=== PATIENT | male | born 1955 | race Caucasian/White ===

== ENCOUNTER 2017-08-06 12:26 | Observation (INO) | payer MEDICAID ==
[2017-08-06] MEDS ORDERED: NITROGLYCERIN 2% PASTE TOP STA ×2 (13:13→16:32)
[2017-08-06] MEDS ORDERED: ASPIRIN CHEW 81 MG TABLET PO STA (13:13)
--- NOTE | 2017-08-06 13:16 | ED Physician Documentation ---
PD HPI CHEST PAIN - Stated complaint Stated Complaint: SOA/CHEST PX/DIZZY - Chief complaint Chief Complaint: Cardiac - History obtained from History obtained from: Patient - History of Present Illness Timing - onset: Other (62-year-old gentleman with history of coronary disease, single stent in place. Medically noncompliant, on no medications now because he lacks the ability to get transport to a MI facility. For the last 2 weeks he has been consistently short of breath, present at rest and worse with exertion. He is quite dizzy and he has had on and off chest pain for the last 2 weeks that sometimes is quite mild and sometimes feels like he is getting hit in the chest with a sledgehammer, it is on the left side over the breast and radiates up to the shoulder and arm. There is no significant radiation to the back. He feels cold but denies pedal edema or recent travel.) Review of Systems Ten Systems: 10 systems reviewed and negative Constitutional: reports: Reviewed and negative Throat: reports: Reviewed and negative Cardiac: reports: Chest pain / pressure. denies: Palpitations, Pedal edema, Calf pain Respiratory: reports: Dyspnea, Cough GI: denies: Abdominal Pain PD PAST MEDICAL HISTORY - Past Medical History Cardiovascular: Hypertension, High cholesterol, Coronary artery disease, [place] Respiratory: Shortness of breath Neuro: CVA Endocrine/Autoimmune: None GI: None : None HEENT: Other Psych: Depression Musculoskeletal: Hemiplegia Derm: None - Past Surgical History Past Surgical History: Yes Ortho: Other Cardiovascular: Coronary stent, Cardiac catheterization - Present Medications Home Medications: Ambulatory Orders Medication Instructions Recorded Confirmed No Known Home Medications [No 08/06/17 08/06/17 Known Home Medications] - Allergies Allergies/Adverse Reactions: Allergies Allergy/AdvReac Type Severity Reaction Status Date / Time NSAIDS (Non-Steroidal Allergy Nausea Verified 08/06/17 12:37 Anti-Inflamma - Social History Does the pt smoke?: Yes Smoking Status: Current every day smoker Does the pt drink ETOH?: Yes Does the pt have substance abuse?: No - Family History Family history: reports: Non contributory - Immunizations Immunizations are current?: Yes - POLST Patient has POLST: No PD ED PE NORMAL - Vitals Vital signs reviewed: Yes - General General: Alert and oriented X 3, Other (Mildly labored breathing with speaking in full sentences) - HEENT HEENT: Other (Poor dentition) - Neck Neck: Supple, no meningeal sign, No bony TTP - Cardiac Cardiac: RRR, No murmur - Respiratory Respiratory: Other (Mild rhonchi at the bases, relatively clear.) - Abdomen Abdomen: Soft, Non tender - Back Back: No CVA TTP, No spinal TTP - Extremities Extremities: No edema, No calf tenderness / cord - Neuro Neuro: Alert and oriented X 3, Normal speech - Psych Psych: Normal mood, Normal affect Results - Vitals Vitals: Vital Signs - 24 hr 08/06/17 08/06/17 08/06/17 12:31 12:45 13:00 Temperature 37.1 C Heart Rate 117 H 100 97 Respiratory 28 H 22 22 Rate Blood Pressure 188/114 H 167/108 H 154/104 H Blood Pressure 154/104 H [Right] O2 Saturation 100 98 100 08/06/17 08/06/17 08/06/17 13:32 14:01 14:25 Temperature Heart Rate 96 87 88 Respiratory 28 H 22 20 Rate Blood Pressure 154/104 H 156/98 H 146/104 H Blood Pressure [Right] O2 Saturation 97 100 98 08/06/17 14:45 Temperature Heart Rate 89 Respiratory 20 Rate Blood Pressure 171/91 H Blood Pressure [Right] O2 Saturation 97 Oxygen O2 Source Room air - EKG (time done) 1256 Rate: Rate (enter#) (93) Rhythm: NSR [place]: Normal Intervals: Normal CO QRS: Normal Ischemia: Normal ST segments, Q waves (Anteroseptal) Compare to prior EKG: Unchanged from prior EKG (No change from 2015.) - Labs Labs: Laboratory Tests 08/06/17 08/06/17 08/06/17 13:00 13:00 13:00 WBC 7.7 RBC 5.07 Hgb 17.0 Hct 50.1 MCV 98.8 H MCH 33.5 H MCHC 33.9 RDW 12.6 Plt Count 225 MPV 9.3 Neut # 3.5 Lymph # 3.1 [place] # 0.8 Eos # 0.2 Baso # 0.0 Absolute Nucleated RBC 0.01 Nucleated RBCs 0.2 PT INR D-Dimer Sodium 134 L Potassium 3.7 Chloride 105 Carbon Dioxide 20 L Anion Gap 9.0 BUN 10 Creatinine 0.8 Estimated GFR (MDRD) 98 Glucose 106 H Calcium 9.7 Total Bilirubin 1.1 H AST 20 ALT 17 Alkaline Phosphatase 58 Total Creatine Kinase 39 CK-MB (CK-2) 1.0 Troponin I < 0.04 Total Protein 8.3 H Albumin 4.5 Globulin 3.8 Albumin/Globulin Ratio 1.2 Lipase 29 08/06/17 14:00 WBC RBC Hgb Hct MCV MCH MCHC RDW Plt Count MPV Neut # Lymph # [place] # Eos # Baso # Absolute Nucleated RBC Nucleated RBCs PT 11.0 INR 1.0 D-Dimer < 200.0 L Sodium Potassium Chloride Carbon Dioxide Anion Gap BUN Creatinine Estimated GFR (MDRD) Glucose Calcium Total Bilirubin AST ALT Alkaline Phosphatase Total Creatine Kinase CK-MB (CK-2) Troponin I Total Protein Albumin Globulin Albumin/Globulin Ratio Lipase - Rads (name of study) 1v chest Radiology: EMP read contemporaneously (NAD) PD MEDICAL DECISION MAKING - ED course ED course: 62-year-old gentleman with history of coronary disease presents with severe ongoing chest pain and shortness of breath. Initial workup negative but his pain is severe and given his history will be placed in observation for further evaluation and treatment. [facility] and [facility], [facility] but he wants to stay here. - Consults Consults: Consulted (name) (Dr Tarango For admission at 3:10 PM) Departure - Departure Disposition: ED Place in Observation Clinical Impression: Chest pain Qualifiers: Chest pain type: unspecified Qualified Code(s): R07.9 - Chest pain, unspecified Dyspnea Qualifiers: Dyspnea type: shortness of breath Qualified Code(s): R06.02 - Shortness of breath Condition: Stable
[2017-08-06] MEDS ORDERED: ASPIRIN CHEW 81 MG TABLET ONE (13:34)
[2017-08-06] MEDS ORDERED: NITROGLYCERIN 2% PASTE TOP ONE (13:34)
[2017-08-06 13:42] LABS: BASOPHILS % (AUTO) 0.5 %; EOSINOPHILS # (AUTO) 0.2 10^3/uL (0.0-0.7); EOSINOPHILS % (AUTO) 2.5 %; HCT - HEMATOCRIT 50.1 % (42.0-52.0); LYMPHOCYTES # (AUTO) 3.1 10^3/uL (1.5-3.5); LYMPHOCYTES % (AUTO) 40.2 %; MEAN CORPUSCULAR HEMOGLOBIN 33.5 pg (27.0-31.0); MEAN CORPUSCULAR HGB CONC 33.9 g/dL (32.0-36.0); MEAN CORPUSCULAR VOLUME 98.8 fL (80.0-94.0); MEAN PLATELET VOLUME 9.3 fL (7.4-11.4); MONOCYTES # (AUTO) 0.8 10^3/uL (0.0-1.0); MONOCYTES % (AUTO) 10.7 %; NEUTROPHILS # (AUTO) 3.5 10^3/uL (1.5-6.6); NEUTROPHILS % (AUTO) 46.1 %; NUCLEATED RED BLOOD CELLS AUTO 0.2 /100WBC; RED BLOOD COUNT 5.07 10^6/uL (4.70-6.10); RED CELL DISTRIBUTION WIDTH 12.6 % (12.0-15.0); UNCORRECTED WHITE BLOOD COUNT 7.7 x10^3/uL; WHITE BLOOD COUNT 7.7 x10^3/uL (4.8-10.8)
[2017-08-06] MEDS ORDERED: MORPHINE 2 MG/ML SYRINGE IVP STA ×2 (13:52→14:50)
[2017-08-06] MEDS ORDERED: MORPHINE 2 MG/ML SYRINGE ONE ×2 (14:08→14:55)
[2017-08-06] MEDS ORDERED: SODIUM CHLORIDE FLUSH 0.9% 10 ML SYRINGE IVP ONE ×2 (14:09→14:55)
--- NOTE | 2017-08-06 14:20 | XRAY Report ---
EXAM: CHEST RADIOGRAPHY EXAM DATE: 08/06/2017 01:49 PM. CLINICAL HISTORY: Chest pain and dyspnea. COMPARISON: 04/07/2015. TECHNIQUE: 1 view. FINDINGS: Lungs/Pleura: No focal opacities evident. No pleural effusion. No pneumothorax. The lungs appear hype rinflated. Mediastinum: Within exam limitations, cardiomediastinal contour is normal. Other: None. IMPRESSION: No radiographically apparent acute abnormality in the chest. Clear lungs. No significant change from prior. [facility] Referring Provider Line: [phone] SITE ID: [id number]
[2017-08-06 14:25] LABS: ALBUMIN/GLOBULIN RATIO 1.2 (1.0-2.2); BILIRUBIN,TOTAL 1.1 mg/dL (0.2-1.0); CALCIUM 9.7 mg/dL (8.5-10.3); CREATININE 0.8 mg/dL (0.6-1.2); POTASSIUM 3.7 mmol/L (3.5-5.0); TOTAL PROTEIN 8.3 g/dL (6.7-8.2)
[2017-08-06 14:29] LABS: D-DIMER < 200.0 ng/mL (200.0-255.0)
[2017-08-06 14:39] LABS: TROPONIN I < 0.04 ng/mL (<0.49)
[2017-08-06] MEDS ORDERED: SODIUM CHLORIDE FLUSH 0.9% 10 ML SYRINGE IVP PRN (16:24)
[2017-08-06] MEDS ORDERED: PROCHLORPERAZINE 10 MG/2 ML VIAL IVP PRN (16:24)
[2017-08-06] MEDS ORDERED: ZOLPIDEM 5 MG TABLET PO PRN (16:24)
[2017-08-06] MEDS ORDERED: NITROGLYCERIN SL 0.4 MG TABLET SL STA (16:31)
[2017-08-06] MEDS: PANTOPRAZOLE 40 MG VIAL IVP SCH (17:52)
[2017-08-06] MEDS: SODIUM CHLORIDE FLUSH 0.9% 10 ML SYRINGE IVP SCH (17:52)
[2017-08-06] MEDS: MORPHINE 2 MG/ML SYRINGE IVP PRN (22:24)
[2017-08-07] MEDS: SODIUM CHLORIDE FLUSH 0.9% 10 ML SYRINGE IVP SCH (06:06)
[2017-08-07] MEDS: MORPHINE 2 MG/ML SYRINGE IVP PRN (06:06)
[2017-08-07] MEDS: PANTOPRAZOLE 40 MG VIAL IVP SCH (06:06)
[2017-08-07 07:48] VITALS: BP 128/81
[2017-08-07] MEDS ORDERED: FLU VACCINE QS 2017-2018 60 MCG/0.5 ML SYRINGE IM ONE (09:00)
[2017-08-07] MEDS ORDERED: POLYETHYLENE GLYCOL 3350 17 GM PACKET PO SCH (09:00)
[2017-08-07] MEDS ORDERED: ENOXAPARIN 40 MG/0.4 ML SYRINGE SUBQ SCH (09:00)
[2017-08-07] MEDS ORDERED: ASPIRIN 325 MG TABLET PO SCH (09:00)
[2017-08-07] MEDS ORDERED: METOPROLOL SUCCINATE 25 MG TABLET PO SCH (09:00)
--- NOTE | 2017-08-07 10:09 | HISTORY & PHYSICAL EXAMINATION ---
DATE OF ADMISSION: 08/06/2017 HISTORY OF PRESENT ILLNESS: This is a 62-year-old white male with a history of a remote PA in 1993 ac cording to him, history of coronary disease requiring stenting after he presented with unstable angin a and was transferred from this hospital to [facility] in 2003. He also has a history of hype rtension. The patient states that he has not taken any medication whatsoever for approximately 2 years because he "had no transportation." He does check his blood pressure at home intermittently using a wrist cuf f and states that it runs 180 over 100-120. The patient brought his roommate to the emergency room ye sterday and while he was there decided to tell the doctor about his symptoms, which are the following : He has developed chest pain like his anginal pains from many years ago that now occur with any mini mal activity and are associated with shortness of breath, dizziness, and occasionally night sweats. S ome of these awaken him from night. He takes no medications for these, but just "waits them out." The y have been occurring more frequently and lasting longer. For the above reason, he has been placed in observation and started on medications. MEDICATIONS AT HOME: None. ALLERGIES: NONE, HOWEVER, HE REPORTS THAT NONSTEROIDAL ANTI-INFLAMMATORIES CAUSE "NAUSEA". FAMILY HISTORY: Negative for any significant diseases, his parents , but he does not know from at causes. He has a brother that he is not in contact with and he never had children. SOCIAL HISTORY: He is an ex-smoker, drinks no alcohol, occasional takes marijuana. REVIEW OF SYSTEMS: The patient denies cough, fever, diarrhea, recent travel, leg edema. A 10-point re view of systems was negative except for the above HPI. PHYSICAL EXAMINATION GENERAL: Shows a white male in no distress, and he is joking and laughing despite describing that he has "6/10 chest pain currently". VITAL SIGNS: Blood pressure 180/110, heart rate 70 and sinus rhythm, afebrile. HEENT: Unremarkable except he has poor dentition. His upper teeth are entirely missing, the lower jagjit th are broken and some are loose. NECK: Shows no JVD in a vertical position. No carotid bruits. No thyromegaly. No lymphadenopathy. CHEST: Clear. HEART: Sounds are normal. No audible murmur. No heave in the precordium. No gallop is heard. ABDOMEN: Soft with positive bowel sounds, nontender. No organomegaly. EXTREMITIES: No clubbing, cyanosis or edema. No calf tenderness. NEUROLOGIC: Grossly intact. LABORATORY DATA: Sodium 134, potassium 3.7, BUN 10, creatinine 0.8. AST and ALT are normal. Alkaline phosphatase normal. First troponin is not detectable. Albumin 4.5. Lipase normal. White blood count 7 .7, hemoglobin 17, platelet count 225. INR normal. D-dimer not detectable. CHEST X-RAY: No evidence of CHF, normal heart size. EKG: Normal sinus rhythm, QS waves present in leads V1 and V2, otherwise within normal limits. There is no old EKG available for comparison. IMPRESSION 1. Accelerating angina/unstable angina pectoris. This is likely from progression of his disease from many years and from being noncompliant with medical management. 2. Coronary disease with prior stenting. Given his known atherosclerosis history, the above symptoms are most likely on the basis of angina and he personally describes that these are like his old sympto ms. 3. Hypertension. The patient has not been on treatment for 2 years that he admits to. 4. Noncompliance. The patient is a V[facility] and [facility], but has not gotten any medica tions from a local physician or the [place]. PLAN: Admit the patient to telemetry. Cycle his troponins for rule out PA protocol. Follow his EKG fo r changes. Obtain an echo to evaluate for wall motion abnormalities, given that he has evidence of an anteroseptal infarct on EKG and by his history, there was an old PA. Begin the patient on sublingual nitrates and topical nitro paste for angina control. Begin the patient on low doses of beta-blockers for post-PA care and blood pressure control. Begin the patient on daily aspirin. Check lipids and tr eat per NCEP guidelines. I had a discussion with the patient about being compliant and the severity o f his disease progression potential. We discussed the possibility of transfer for angiography, if the tests deemed that this is necessary. DVT prophylaxis with Lovenox. Gastrointestinal prophylaxis with H2 marisol. LENGTH OF TIME FOR ADMISSION: 45 minutes. JOB #: [id number] EXT JOB #:[id number]
--- NOTE | 2017-08-07 10:52 | Discharge Plan ---
Discharge Plan Disposition: Home, Self Care Condition: Fair Prescriptions: Metoprolol Succinate [Toprol Xl] 25 mg PO DAILY #30 tablet Zolpidem [Ambien] 5 mg PO QPM PRN #20 tablet PRN Reason: Insomnia Diet: Cardiac Activity Restrictions: No Restrictions Shower Restrictions: No Driving Restrictions: No Instruction Topics: Heart Failure Diet Changes, Angina, ED HTN Established Additional Instructions or Follow Up instructions: You will now have prescriptions for: Toprol XL 25 mg daily Imdur 30 mg daily Sublingual Nitro to use if you get angina Nicoderm patch daily Ambien if needed for sleep Aspirin adult dose daily (you need to buy these [id number] on your own) Take all your medications as prescribed. When you run out, get refills. You must choose a Primary Care Provider and a [employer] Machine Operator or have follow-up at the [facility], for further management of your heart condition and for medication refills. Do not use salt in your diet. No Smoking: If you smoke, Please STOP! Call for help.
--- NOTE | 2017-08-07 12:37 | DISCHARGE SUMMARY ---
DATE OF ADMISSION: 08/06/2017 DATE OF DISCHARGE: 08/07/2017 HISTORY: This is a 62-year-old white male who has a history of a remote PA in 1993. He has a history of admission for angina and transferred for coronary stenting in 2003. He has a history of noncompliance, is supposed to be followed at the [facility]. He states he ran out of his medications 2 years ago and has taken no medicines for hypertension or coronary disease. The patient is admitted with accelerating the unstable anginal symptoms over the last several months and was admitted for observation and reinstitution of medications. HOSPITAL COURSE AND DISCHARGE DIAGNOSES 1. Unstable angina. The patient's EKG showed evidence of an anteroseptal scar, but no ischemic changes. His troponin enzymes were all normal during this admission. The followup EKG had no new changes. The patient was started on nitro paste topically and sublingual nitroglycerin p.r.n., which did resolve his symptoms. The patient was deemed stable for discharge on new Imdur 30 mg p.o. daily, sublingual nitroglycerin 0.4 mg p.r.n., aspirin daily, Toprol-XL 25 mg p.o. daily. He was advised to have followup with his primary care doctor or rigging slinger or to follow up at the [facility] and to have refills on prescriptions when these run out. 2. History of coronary disease and prior myocardial infarction. The patient underwent an echo during this admission, which showed evidence of thinning and akinesis of the anteroseptal region, other wall motion normal, preliminary estimated LV ejection fraction approximately 45%. The patient was deemed stable for discharge with his new Toprol-XL 25 mg p.o. daily, aspirin, and the above medications for angina. He was advised to follow up for his cardiac condition. 3. Hypertension. The patient presented with a blood pressure of 180/110 and had admitted to taking no blood pressure medications for these 2 years despite documented home blood pressures in the same range. With the institution of nitrates and beta marisol, his blood pressure was under control and he was discharged with the above medications listed. 4. Cigarette smoking. The patient requested a Nicoderm patch topically and stated he was ready to stop smoking. He was discharged with a Nicoderm 7 mg patch topically daily for a 30-day supply. CONDITION AT DISCHARGE: Fair. His entire physical exam was normal except for very poor dentition. MEDICATIONS AT DISCHARGE These are all new: 1. Toprol-XL 25 mg p.o. daily with a meal. 2. Imdur 30 mg p.o. daily. 3. Sublingual nitroglycerin 0.4 mg p.r.n. angina 4. Ambien 5 mg p.o. at bedtime p.r.n. 5. Nicoderm patch 7 mg topically daily. 6. Aspirin 325 mg p.o. daily. Time required for completion of record, exam, and education: 40 minutes. 11:9:00 JOB #: [id number] EXT JOB #:[id number] MONO
== END 2017-08-07 12:33 | disposition home or self-care (01) ==
LOC: ED 12:26 → OBS 16:24 → FBP 16:24 → UNDOADMOB 16:24
PROVIDERS: ADMIT Internal Medicine; ATTEND Internal Medicine
DX: I25.110 Atherosclerotic heart disease of native coronary artery with unstable angina pectoris (principal); I10 Essential (primary) hypertension; T50.906A Underdosing of unspecified drugs, medicaments and biological substances, initial encounter; Z91.138 Patient's unintentional underdosing of medication regimen for other reason; I25.2 Old myocardial infarction; E78.00 Pure hypercholesterolemia, unspecified; F17.210 Nicotine dependence, cigarettes, uncomplicated; Z95.5 Presence of coronary angioplasty implant and graft; Z86.73 Personal history of transient ischemic attack (TIA), and cerebral infarction without residual deficits
CPT/HCPCS: 36415; 71010; 80053; 82550; 82553; 83690; 83735; 83880; 84484; 85025; 85379; 85610; 93005; 93306; 96372; 96374; 96375; 96376; 99284; 99285; A9270; G0378; J1650; J2270

== ENCOUNTER 2018-03-20 13:11 | Inpatient (IN) | payer MEDICAID ==
--- NOTE | 2018-03-20 15:17 | XRAY Report ---
EXAM: CHEST RADIOGRAPHY EXAM DATE: 03/20/2018 03:12 PM. CLINICAL HISTORY: Chest pain. COMPARISON: 02/16/2014. TECHNIQUE: 1 view. FINDINGS: Lungs/Pleura: Hyperexpanded, but clear. No effusion or pneumothorax. Mediastinum: Within exam limitations, the cardiomediastinal contour is normal. Upper lobe vessels not distended. Other: Mild degenerative changes. IMPRESSION: No acute disease. [facility] Referring Provider Line: [phone] SITE ID: [id number]
[2018-03-20 16:33] LABS: BASOPHILS # (AUTO) 0.1 10^3/uL (0.0-0.1); BASOPHILS % (AUTO) 0.8 %; EOSINOPHILS % (AUTO) 0.5 %; HGB - HEMOGLOBIN 15.9 g/dL (14.0-18.0); LYMPHOCYTES # (AUTO) 2.2 10^3/uL (1.5-3.5); LYMPHOCYTES % (AUTO) 28.8 %; MEAN CORPUSCULAR HEMOGLOBIN 32.5 pg (27.0-31.0); MEAN CORPUSCULAR HGB CONC 33.3 g/dL (32.0-36.0); MEAN CORPUSCULAR VOLUME 97.5 fL (80.0-94.0); MEAN PLATELET VOLUME 8.2 fL (7.4-11.4); MONOCYTES # (AUTO) 0.5 10^3/uL (0.0-1.0); NEUTROPHILS # (AUTO) 4.9 10^3/uL (1.5-6.6); NEUTROPHILS % (AUTO) 62.9 %; PLT - PLATELET COUNT 168 10^3/uL (130-450); RED BLOOD COUNT 4.89 10^6/uL (4.70-6.10); RED CELL DISTRIBUTION WIDTH 13.7 % (12.0-15.0); WHITE BLOOD COUNT 7.8 x10^3/uL (4.8-10.8)
[2018-03-20 16:46] LABS: ALBUMIN 4.6 g/dL (3.2-5.5); ALBUMIN/GLOBULIN RATIO 1.4 (1.0-2.2); BILIRUBIN,TOTAL 1.1 mg/dL (0.2-1.0); CALCIUM 9.1 mg/dL (8.5-10.3); CREATININE 0.7 mg/dL (0.6-1.2)
[2018-03-20] MEDS ORDERED: ONDANSETRON 4 MG/2 ML VIAL IVP STA (16:58)
[2018-03-20] MEDS ORDERED: MORPHINE 2 MG/ML SYRINGE IVP STA (16:58)
[2018-03-20] MEDS ORDERED: NITROGLYCERIN 2% PASTE TOP STA (16:59)
--- NOTE | 2018-03-20 17:01 | ED Physician Documentation ---
History of Present Illness - Stated complaint Stated Complaint: DIZZY/CHEST PX/SOA - Chief complaint Chief Complaint: Cardiac - Additonal information Additional information: hx from pt 62 male known CAD s/p stent at [facility] on asa no toher meds as he has had trouble getting to the doctor 3 days of waxing waning CP with associated cough SOA diaphoresis temp relieved with nitro but comes back today much more severe pain X approx 5 hr now - took 3 nitro but pain kept coming back no fever no travel no swollen legs Review of Systems Constitutional: reports: Sweats. denies: Fever, Chills Cardiac: reports: Chest pain / pressure Respiratory: reports: Dyspnea GI: reports: Nausea. denies: Abdominal Pain Musculoskeletal: denies: Extremity swelling Endocrine: denies: Easy bruising / bleeding Immunocompromised: denies: Immunocompromised PD PAST MEDICAL HISTORY - Past Medical History Past Medical History: Yes Cardiovascular: Hypertension, High cholesterol, Coronary artery disease, [place] Respiratory: Shortness of breath Neuro: CVA Endocrine/Autoimmune: None GI: None : None HEENT: Other Psych: Depression Musculoskeletal: Hemiplegia Derm: None - Past Surgical History Past Surgical History: Yes Ortho: Other Cardiovascular: Coronary stent, Cardiac catheterization - Present Medications Home Medications: Ambulatory Orders Medication Instructions Recorded Confirmed Aspirin [Jarrod] 325 mg PO DAILY tablet 08/07/17 Isosorbide Mononitrate ER [Imdur] 30 mg PO DAILY #30 tablet 08/07/17 Metoprolol Succinate [Toprol Xl] 25 mg PO DAILY #30 tablet 08/07/17 Nicotine 7 mg Patch [Nicoderm] 1 each TOP Q24H #30 patch 08/07/17 Nitroglycerin 0.4 mg SL 1-2XD PRN #100 tab.subl 08/07/17 Zolpidem [Ambien] 5 mg PO QPM PRN #20 tablet 08/07/17 - Allergies Allergies/Adverse Reactions: Allergies Allergy/AdvReac Type Severity Reaction Status Date / Time NSAIDS (Non-Steroidal AdvReac Nausea Verified 08/06/17 16:33 Anti-Inflamma - Social History Does the pt smoke?: Yes Smoking Status: Current every day smoker Does the pt drink ETOH?: Yes Does the pt have substance abuse?: No - Immunizations Immunizations are current?: Yes - POLST Patient has POLST: No PD ED PE NORMAL - Vitals Vital signs reviewed: Yes - General General: Alert and oriented X 3 - Cardiac Cardiac: RRR - Respiratory Respiratory: No respiratory distress, Clear bilaterally - Abdomen Abdomen: Soft, Non tender, Other (no ruq TTP) - Derm Derm: Normal color - Extremities Extremities: No edema, No calf tenderness / cord - Neuro Neuro: Alert and oriented X 3 Results - Vitals Vitals: Vital Signs - 24 hr 03/20/18 03/20/18 13:28 18:08 Temperature 37.2 C Heart Rate 87 81 Respiratory 20 20 Rate Blood Pressure 185/109 H 160/94 H O2 Saturation 99 99 Oxygen O2 Source Room air - EKG (time done) 1528 # 2 Rate: Rate (enter#) Rhythm: NSR [place]: Normal Intervals: Normal CO QRS: Normal Ischemia: Normal ST segments Compare to prior EKG: Other (EKG machine reads possible ST elev inf on both EKG #1 and on rpt - no dynamic chnages) 1330 Rate: Rate (enter#) (90) Rhythm: NSR [place]: Normal Intervals: Normal CO Other comments: Other comments (per computer read possible ST elev inf) - Labs Labs: Laboratory Tests 03/20/18 03/20/18 03/20/18 16:25 16:25 16:25 WBC 7.8 RBC 4.89 Hgb 15.9 Hct 47.6 MCV 97.5 H MCH 32.5 H MCHC 33.3 RDW 13.7 Plt Count 168 MPV 8.2 Neut # 4.9 Lymph # 2.2 [place] # 0.5 Eos # 0.0 Baso # 0.1 Absolute Nucleated RBC 0.00 Nucleated RBC % 0.0 Sodium 134 L Potassium 4.1 Chloride 103 Carbon Dioxide 20 L Anion Gap 11.0 BUN 8 Creatinine 0.7 Estimated GFR (MDRD) 115 Glucose 116 H Calcium 9.1 Total Bilirubin 1.1 H AST 19 ALT 16 Alkaline Phosphatase 51 Troponin I < 0.04 Total Protein 8.0 Albumin 4.6 Globulin 3.4 Albumin/Globulin Ratio 1.4 Lipase 33 - Rads (name of study) CXR Radiology: See rad report (no acute) CTPA Radiology: See rad report (new minimal focal hazy opacity posterior XIMENA could be pna, no PE) PD MEDICAL DECISION MAKING - ED course ED course: pt takes asa at home pain temp relieved by sl nitro but comes back severe pain at time I saw pt EKG s acute ischemia (noted computer read) CXR no acute trop # 1 neg but pain just escalated today merits serial EC and a strress test also ordered a CTPA paged hospitalist at 1725 for admit CTPA done and read and showed no PE but possible XIMENA infiltrate - will advise hospitalist to consider ab Departure - Departure Disposition: ED Place in Observation Clinical Impression: Chest pain Qualifiers: Chest pain type: unspecified Qualified Code(s): R07.9 - Chest pain, unspecified Condition: Good Discharge Date/Time: 03/20/18 19:36
[2018-03-20] MEDS ORDERED: METOPROLOL 5 MG/5 ML VIAL IVP STA (17:06)
[2018-03-20] MEDS ORDERED: IOPAMIDOL-300 100 ML VIAL ONE (17:30)
[2018-03-20] MEDS ORDERED: IOPAMIDOL-300 100 ML VIAL IVP ONE (18:08)
--- NOTE | 2018-03-20 18:16 | CT Preliminary Report ---
Exam: CT CHEST ANGIO (PE) IMPRESSION: 1. New minimal focal hazy opacity seen posteriorly in the left upper lobe, could represent minimal pn eumonia. 2. No evidence for pulmonary emboli. [facility] SITE ID: [id number]
[2018-03-20] MEDS ORDERED: ACETAMINOPHEN 325 MG TABLET PO PRN (18:22)
[2018-03-20] MEDS ORDERED: PROCHLORPERAZINE 10 MG/2 ML VIAL IVP PRN (18:22)
[2018-03-20] MEDS ORDERED: TEMAZEPAM 15 MG CAPSULE PO PRN (18:22)
--- NOTE | 2018-03-20 18:24 | CT Report ---
EXAM: CT ANGIOGRAM CHEST EXAM DATE: 03/20/2018 05:40 PM. CLINICAL HISTORY: Chest pain and shortness of air. COMPARISON: Chest CT 04/07/2015. TECHNIQUE: Routine helical imaging was performed through the chest in the pulmonary arterial phase. I V Contrast: 68CC ISOVUE 300. Reconstructions: Coronal 3-D MIP reconstructions.Sagittal and coronal. In accordance with CT protocol optimization, one or more of the following dose reduction techniques w ere utilized for this exam: automated exposure control, adjustment of mA and/or KV based on patient s ize, or use of iterative reconstructive technique. FINDINGS: Mediastinum: No thoracic aortic aneurysm. Normal heart size. Coronary artery calcification. No mediastinal or hilar lymphadenopathy. Mildly prominent right hilar lymph node measuring 7 mm. No evidence for a pulmonary emboli. Lungs: Mild right basilar lobe linear opacity, suspect atelectasis or scarring. No pleural effusion o r pneumothorax. New minimal focal hazy opacity seen posteriorly in the left upper lobe, see axial alycia ge 99, could represent minimal pneumonia. No acute findings seen in the upper abdomen. No acute bone findings. IMPRESSION: 1.New minimal focal hazy opacity seen posteriorly in the left upper lobe, could represent minimal pne umonia. 2. No evidence for a pulmonary emboli. [facility] Referring Provider Line: [phone] SITE ID: [id number]
[2018-03-20] MEDS ORDERED: NITROGLYCERIN SL 0.4 MG TABLET SL SCH (18:29)
[2018-03-20] MEDS: NITROGLYCERIN 2% PASTE TOP SCH (20:08)
[2018-03-20] MEDS: NICOTINE 7 MG PATCH TOP SCH (20:08)
[2018-03-20] MEDS: MORPHINE 2 MG/ML SYRINGE IVP PRN (20:16)
[2018-03-20] MEDS: SODIUM CHLORIDE FLUSH 0.9% 10 ML SYRINGE IVP PRN ×3 (20:25→21:43)
[2018-03-20] MEDS ORDERED: IPRATROPIUM/ALBUTEROL 3 ML NEB INH PRN (20:49)
[2018-03-20] MEDS: SACCHAROMYCES BOULARDII 250 MG CAPSULE PO SCH (21:09)
[2018-03-20] MEDS: AMPICILLIN/SULBACTAM 1.5 GM in SODIUM CHLORIDE 0.9% MINIBAG 100 ML IV SCH (21:09)
[2018-03-21] MEDS: SODIUM CHLORIDE FLUSH 0.9% 10 ML SYRINGE IVP SCH ×4 (00:08→21:48)
[2018-03-21] MEDS: MORPHINE 2 MG/ML SYRINGE IVP PRN ×3 (00:08→22:06)
[2018-03-21] MEDS: AMPICILLIN/SULBACTAM 1.5 GM in SODIUM CHLORIDE 0.9% MINIBAG 100 ML IV SCH ×4 (03:07→21:47)
[2018-03-21] MEDS: NITROGLYCERIN 2% PASTE TOP SCH (03:21)
[2018-03-21 05:56] LABS: CHOL/HDL RATIO 2.5 (<5.0); CHOLESTEROL 140 mg/dL; HDL CHOLESTEROL 57 mg/dL; LDL CHOLESTEROL,CALCULATED 65 mg/dL; LDL/HDL RATIO 1.1 (<3.6); VLDL CHOLESTEROL 18 mg/dL
--- NOTE | 2018-03-21 07:19 | XRAY Preliminary Report ---
Exam: XR CHEST 2 VIEW X-RAY IMPRESSION: No focal pulmonary consolidation or other acute cardiopulmonary abnormality. The very subtle small fo lianne hazy opacity seen in the left upper lobe on recent CT is not apparent on radiograph. [facility] SITE ID: [id number]
--- NOTE | 2018-03-21 07:19 | XRAY Report ---
EXAM: CHEST RADIOGRAPHY EXAM DATE: 03/21/2018 06:25 AM. CLINICAL HISTORY: Possible Pneumonia by CT. COMPARISON: Chest radiograph 03/20/2018, 02/16/2014. CT angiogram of the chest 03/20/2018. TECHNIQUE: 2 views. FINDINGS: Lungs/Pleura: No focal opacities evident. No pleural effusion. No pneumothorax. Normal volumes. Mediastinum: Heart and mediastinal contours are unremarkable. Other: There are mild degenerative disk changes of the thoracic spine. No acute osseous abnormality. IMPRESSION: No focal pulmonary consolidation or other acute cardiopulmonary abnormality. The very subtle small fo lianne hazy opacity seen in the left upper lobe on recent CT is not apparent on radiograph. [facility] Referring Provider Line: [phone] SITE ID: [id number]
[2018-03-21] MEDS: ISOSORBIDE MONONITRATE ER 30 MG TABLET PO SCH (10:05)
[2018-03-21] MEDS: FAMOTIDINE 20 MG TABLET PO SCH (10:05)
[2018-03-21] MEDS: METOPROLOL SUCCINATE 25 MG TABLET PO SCH (10:05)
[2018-03-21] MEDS: ASPIRIN 325 MG TABLET PO SCH (10:06)
[2018-03-21] MEDS: SACCHAROMYCES BOULARDII 250 MG CAPSULE PO SCH ×2 (10:06→17:04)
[2018-03-21] MEDS: POLYETHYLENE GLYCOL 3350 17 GM PACKET PO SCH (10:07)
[2018-03-21] MEDS: ENOXAPARIN 40 MG/0.4 ML SYRINGE SUBQ SCH (10:12)
--- NOTE | 2018-03-21 16:44 | PROVIDER PROGRESS NOTE ---
Assessment/Plan - Problem List (1) Unstable angina Assessment/Plan: Symptoms significantly improved with restart of all cardiac meds. (2) Non-compliance Assessment/Plan: Pt needs a PCP, Draftsperson and wharf worker to help with names and places. (3) CAP (community acquired pneumonia) Qualifiers: Laterality: left Lung location: upper lobe of lung Qualified Code(s): J18.1 - Lobar pneumonia, unspecified organism Assessment/Plan: Pt still coughing and SOB with activity. Will continue iv antibiotics and not DCh yet. (4) COPD (chronic obstructive pulmonary disease) Qualifiers: COPD type: emphysema Assessment/Plan: Continue treatment with nebs prn and Mucinex. (5) Weight loss Assessment/Plan: CT of chest does not have areas that are of concern for suspicious malignancy. Other occult cancer W/U would need to be done by his PCP. I explained this to Pt and he understands. - Current Meds Current Meds: Current Medications Generic Name Dose Route Start Last Admin Trade Name Freq PRN Reason Stop Dose Admin Aspirin 325 mg 03/21/18 09:00 03/21/18 10:06 Jarrod PO 325 mg DAILY CHERIE Administration Enoxaparin Sodium 40 mg 03/21/18 09:00 03/21/18 10:12 Lovenox SUBQ 40 mg DAILY CHERIE Administration Famotidine 20 mg 03/21/18 09:00 03/21/18 10:05 Pepcid PO 20 mg DAILY CHERIE Administration Ampicillin Sodium/Sulbactam 100 mls @ 200 mls/hr 03/20/18 21:00 03/21/18 15: 00 Sodium 1.5 gm/ Sodium Chloride IV Infused Q6H CHERIE Infusion Isosorbide Mononitrate 30 mg 03/21/18 09:00 03/21/18 10:05 Imdur PO 30 mg DAILY CHERIE Administration Metoprolol Succinate 25 mg 03/21/18 09:00 03/21/18 10:05 Toprol Xl PO 25 mg DAILY CHERIE Administration Morphine Sulfate 2 mg 03/20/18 18:22 03/21/18 10:15 Morphine IVP 2 mg Q2H PRN Administration Pain 8 to 10 Nicotine 1 patch 03/20/18 19:00 03/20/18 20:08 Nicoderm TOP Not Given Q24H CHERIE Polyethylene Glycol 17 gm 03/21/18 09:00 03/21/18 10:07 Miralax PO Not Given DAILY CHERIE Saccharomyces Boulardii 250 mg 03/20/18 21:00 03/21/18 10:06 Florastor PO 250 mg BIDWM CHERIE Administration Sodium Chloride 10 ml 03/20/18 18:22 03/20/18 21:43 Normal Saline Flush 0.9% IVP 10 ml PRN PRN Administration NEEDED PER PROVIDER ORDERS Sodium Chloride 10 ml 03/21/18 01:00 03/21/18 10:15 Normal Saline Flush 0.9% IVP 10 ml 0100,0900,1700 CHERIE Administration - Lab Result Fish Bone Diagrams: 03/20/18 16:25 03/20/18 16:25 - EKG Results EKG Interpreted Independently: Yes EKG Comparison: Unchanged from prior EKG - Additional Planning My Orders: My Active Orders 03/20/18 18:45 CULTURE, BLOOD #1 [RM] Stat 03/20/18 19:00 Nicotine 7 mg Patch [Nicoderm] 1 patch TOP Q24H 03/20/18 20:04 Nutrition Consult [CONS] Routine 03/21/18 09:00 Aspirin [Jarrod] 325 mg PO DAILY Isosorbide Mononitrate ER [Imdur] 30 mg PO DAILY Metoprolol Succinate [Toprol Xl] 25 mg PO DAILY 03/21/18 16:40 Admit \ Transfer \ Status [RC] .ONCE 03/21/18 Dinner Cardiac Diet [DIET] Subjective - Subjective Patient Reports: Shortness of Breath, Other (Cough is worse) Nursing Reports: Other Objective Vital Signs: Vital Signs - 24 hr 03/20/18 03/20/18 03/20/18 19:57 20:14 23:49 Temperature 36.3 C L 36.3 C L Heart Rate 68 Heart Rate [ 65 63 Brachial] Respiratory 24 22 Rate Blood Pressure 182/100 H Blood Pressure 195/116 H 153/96 H [Right Brachial artery] O2 Saturation 99 98 03/21/18 03/21/18 03/21/18 04:58 08:29 13:00 Temperature 36.2 C L 36.5 C 36.4 C L Heart Rate Heart Rate [ 64 65 63 Brachial] Respiratory 20 18 17 Rate Blood Pressure Blood Pressure 162/92 H 157/84 H 126/84 H [Right Brachial artery] O2 Saturation 97 96 97 03/21/18 15:43 Temperature 36.3 C L Heart Rate Heart Rate [ 66 Brachial] Respiratory 18 Rate Blood Pressure Blood Pressure 133/69 H [Right Brachial artery] O2 Saturation 98 Oxygen O2 Source Room air I&O (Last 24 Hrs): Intake and Output Totals x24h 03/19/18 03/20/18 03/21/18 23:59 23:59 23:59 Intake Total 100 1206 Output Total 900 Balance 100 306 General: Alert, Oriented x3 HEENT: Mucous membr. moist/pink, Other (Poo dentition) Neck: Supple, No JVD Neuro: Alert, Non Focal Cardiovascular: No murmurs Respiratory: Other (Scattered rhonchi) Abdomen: Soft Extremities: No edema - Results Results: Laboratory Results WBC 7.8 x10^3/uL (4.8-10.8) 03/20/18 16:25 RBC 4.89 10^6/uL (4.70-6.10) 03/20/18 16:25 Hgb 15.9 g/dL (14.0-18.0) 03/20/18 16:25 Hct 47.6 % (42.0-52.0) 03/20/18 16:25 MCV 97.5 fL (80.0-94.0) H 03/20/18 16:25 MCH 32.5 pg (27.0-31.0) H 03/20/18 16:25 MCHC 33.3 g/dL (32.0-36.0) 03/20/18 16:25 RDW 13.7 % (12.0-15.0) 03/20/18 16:25 Plt Count 168 10^3/uL (130-450) 03/20/18 16:25 MPV 8.2 fL (7.4-11.4) 03/20/18 16:25 Neut # 4.9 10^3/uL (1.5-6.6) 03/20/18 16:25 Lymph # 2.2 10^3/uL (1.5-3.5) 03/20/18 16:25 [place] # 0.5 10^3/uL (0.0-1.0) 03/20/18 16:25 Eos # 0.0 10^3/uL (0.0-0.7) 03/20/18 16:25 Baso # 0.1 10^3/uL (0.0-0.1) 03/20/18 16:25 Absolute Nucleated RBC 0.00 x10^3/uL 03/20/18 16:25 Nucleated RBC % 0.0 /100WBC 03/20/18 16:25 Sodium 134 mmol/L (135-145) L 03/20/18 16:25 Potassium 4.1 mmol/L (3.5-5.0) 03/20/18 16:25 Chloride 103 mmol/L (101-111) 03/20/18 16:25 Carbon Dioxide 20 mmol/L (21-32) L 03/20/18 16:25 Anion Gap 11.0 (6-13) 03/20/18 16:25 BUN 8 mg/dL (6-20) 03/20/18 16:25 Creatinine 0.7 mg/dL (0.6-1.2) 03/20/18 16:25 Estimated GFR (MDRD) 115 (>89) 03/20/18 16:25 Glucose 116 mg/dL (70-100) H 03/20/18 16:25 Calcium 9.1 mg/dL (8.5-10.3) 03/20/18 16:25 Total Bilirubin 1.1 mg/dL (0.2-1.0) H 03/20/18 16:25 AST 19 IU/L (10-42) 03/20/18 16:25 ALT 16 IU/L (10-60) 03/20/18 16:25 Alkaline Phosphatase 51 IU/L (42-121) 03/20/18 16:25 Troponin I < 0.04 ng/mL (<0.49) 03/21/18 05:18 Total Protein 8.0 g/dL (6.7-8.2) 03/20/18 16:25 Albumin 4.6 g/dL (3.2-5.5) 03/20/18 16:25 Globulin 3.4 g/dL (2.1-4.2) 03/20/18 16:25 Albumin/Globulin Ratio 1.4 (1.0-2.2) 03/20/18 16:25 Triglycerides 92 mg/dL (-149) 03/21/18 05:18 Cholesterol 140 mg/dL (-199) 03/21/18 05:18 LDL Cholesterol, Calc 65 mg/dL (-129) 03/21/18 05:18 VLDL Cholesterol 18 mg/dL 03/21/18 05:18 HDL Cholesterol 57 mg/dL (60-) L 03/21/18 05:18 LDL/HDL Ratio 1.1 (<3.6) 03/21/18 05:18 Cholesterol/HDL Ratio 2.5 (<5.0) 03/21/18 05:18 Lipase 33 U/L (22-51) 03/20/18 16:25 ABX Reporting Has patient been on IV antibiotics over the past 48 hours?: Yes
[2018-03-21] MEDS: NICOTINE 7 MG PATCH TOP SCH (21:20)
--- NOTE | 2018-03-21 21:30 | HISTORY & PHYSICAL EXAMINATION ---
DATE OF SERVICE: 03/21/2018 Physician: Chana Akhtar MD HISTORY OF PRESENT ILLNESS: This is a 62-year-old white male with a history of coronary artery disease, prior stenting, noncompliance with prior running out of medications and not following up with a primary care doctor for any refills and admission here several months ago with angina from running out of his medications. The patient now presents with the same complaint of running out of his medicines several days ago, taking none because of not having refills, not following up with the PCP and therefore he started to develop angina with activity and mild shortness of breath. He was seen in the emergency room because of this complaint and admitted for management of unstable angina, restarting and adjusting medications. PAST MEDICAL HISTORY 1. Coronary artery disease. 2. Noncompliance. 3. COPD. 4. Continued smoking. ALLERGIES: NONSTEROIDAL ANTI-INFLAMMATORIES. MEDICATIONS 1. Adult dose aspirin daily. 2. Imdur 30 mg daily. 3. Metoprolol succinate 25 mg daily. 4. Nicotine patch 7 mg daily. 5. Sublingual nitroglycerin p.r.n. 6. Ambien 5 mg p.o. every evening. FAMILY HISTORY: Lung cancer in a brother and one other family member, no other inherited diseases. SOCIAL HISTORY: The patient is a smoker, who has decreased significantly in just two months from three packs a day down to three cigarettes a day. He uses no alcohol or illicit drugs. REVIEW OF SYSTEMS: The patient has had a chronic cough for many months, mostly nonproductive, rarely productive of clear and yellow sputum. No hemoptysis. The patient describes a 25 pound weight loss over the past half a year. 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 The patient describes shortness of breath over the past two years with moderate to high activity. Otherwise, a complete comprehensive review of systems was performed and the other organ systems are negative. PHYSICAL EXAMINATION GENERAL: Cachectic white male who appears older than his age. VITAL SIGNS: Blood pressure 185/109, pulse of 87 in sinus rhythm, afebrile. Room air saturation 99%. HEENT: Reveals poor oral dentition and a disheveled appearance. Oral mucosa is moist. He has a wet nonproductive cough while I am examining him. LUNGS: Lungs show no JVD. No carotid bruits. CHEST: Diffuse rales. HEART: Sounds are normal. No audible murmur. ABDOMEN: Soft, nontender, positive bowel sounds. EXTREMITIES: Without edema. No clubbing, cyanosis. NEUROLOGIC: Intact. LABORATORY DATA: Sodium 134, potassium 4.1. Normal kidney tests and liver tests. Troponin not detectable at less than 0.04. CBC essentially normal. Chest x-ray unremarkable, but a CTA of the chest was done that shows a hazy left upper lobe small infiltrate. EKG: Normal sinus rhythm, QS-waves V1, V2. No acute ST or T changes. This is similar to his last EKG. IMPRESSION/DIAGNOSES 1. Unstable angina. 2. Tobacco use. 3. Noncompliance with medications (runs out of them without a plan for refills and no primary care provider). 4. Community-acquired pneumonia. PLAN: Place the patient in observation and restart his cardiac medications. If these are not controlled by restart, then he should become an inpatient. Cycle troponins to rule out [place] and follow an EKG tomorrow. Begin the patient on empiric treatment for community-acquired pneumonia after obtaining sputum sample and blood culture. Begin telemetry. DEEP VENOUS THROMBOSIS PROPHYLAXIS: Lovenox. CODE STATUS: FULL CODE. ATTESTATION: The patient is expected to be discharged or transferred to another facility within 96 hours: Yes. TD: 03/21/2018 21:28
[2018-03-22] MEDS: AMPICILLIN/SULBACTAM 1.5 GM in SODIUM CHLORIDE 0.9% MINIBAG 100 ML IV SCH ×4 (02:29→20:36)
[2018-03-22] MEDS: MORPHINE 2 MG/ML SYRINGE IVP PRN ×2 (02:44→16:07)
[2018-03-22] MEDS: SODIUM CHLORIDE FLUSH 0.9% 10 ML SYRINGE IVP SCH ×3 (07:53→16:08)
[2018-03-22] MEDS: SACCHAROMYCES BOULARDII 250 MG CAPSULE PO SCH ×2 (08:24→18:58)
[2018-03-22] MEDS: FAMOTIDINE 20 MG TABLET PO SCH (08:25)
[2018-03-22] MEDS: ENOXAPARIN 40 MG/0.4 ML SYRINGE SUBQ SCH (08:25)
[2018-03-22] MEDS: POLYETHYLENE GLYCOL 3350 17 GM PACKET PO SCH (08:25)
[2018-03-22] MEDS: METOPROLOL SUCCINATE 25 MG TABLET PO SCH ×2 (08:25→20:36)
[2018-03-22] MEDS: ISOSORBIDE MONONITRATE ER 30 MG TABLET PO SCH ×2 (08:25→20:36)
[2018-03-22] MEDS: ASPIRIN 325 MG TABLET PO SCH (08:25)
--- NOTE | 2018-03-22 14:45 | PROVIDER PROGRESS NOTE ---
Assessment/Plan - Problem List (1) Unstable angina Assessment/Plan: Significant improvement but not yet completely controlled. EKG had no changes and Pt had normal trops. Will increase the doses of Imdur 30 mg daily to bid and B-marisol f4om daily to bid. (2) Odynophagia Assessment/Plan: Pt on ulcer prophylaxis meds. Will request a surgical consult for EGD and possible theraputic dilation if he has a stricture. (3) Non-compliance Assessment/Plan: Pt was given a new doctor to contact, in [facility] where he can get transport to for med refills and management. (4) CAP (community acquired pneumonia) Qualifiers: Laterality: left Lung location: upper lobe of lung Qualified Code(s): J18.1 - Lobar pneumonia, unspecified organism Assessment/Plan: Continue iv antibiotics. Probable transition to po antibiotics tomorrow. - Current Meds Current Meds: Current Medications Generic Name Dose Route Start Last Admin Trade Name Freq PRN Reason Stop Dose Admin Albuterol/Ipratropium 3 ml 03/20/18 20:49 03/22/18 10:52 Duoneb INH 3 ml Q4HR PRN Administration Wheezing Aspirin 325 mg 03/21/18 09:00 03/22/18 08:25 Jarrod PO 325 mg DAILY CHERIE Administration Enoxaparin Sodium 40 mg 03/21/18 09:00 03/22/18 08:25 Lovenox SUBQ 40 mg DAILY CHERIE Administration Famotidine 20 mg 03/21/18 09:00 03/22/18 08:25 Pepcid PO 20 mg DAILY CHERIE Administration Ampicillin Sodium/Sulbactam 100 mls @ 200 mls/hr 03/20/18 21:00 03/22/18 14: 31 Sodium 1.5 gm/ Sodium Chloride IV 200 mls/hr Q6H CHERIE Administration Morphine Sulfate 2 mg 03/20/18 18:22 03/22/18 02:44 Morphine IVP 2 mg Q2H PRN Administration Pain 8 to 10 Nicotine 1 patch 03/20/18 19:00 03/21/18 21:20 Nicoderm TOP Not Given Q24H CHERIE Polyethylene Glycol 17 gm 03/21/18 09:00 03/22/18 08:25 Miralax PO Not Given DAILY CHERIE Saccharomyces Boulardii 250 mg 03/20/18 21:00 03/22/18 08:24 Florastor PO 250 mg BIDWM CHERIE Administration Sodium Chloride 10 ml 03/20/18 18:22 03/20/18 21:43 Normal Saline Flush 0.9% IVP 10 ml PRN PRN Administration NEEDED PER PROVIDER ORDERS Sodium Chloride 10 ml 03/21/18 01:00 03/22/18 08:26 Normal Saline Flush 0.9% IVP 10 ml 0100,0900,1700 CHERIE Administration - Lab Result Fish Bone Diagrams: 03/20/18 16:25 03/20/18 16:25 - Additional Planning My Orders: My Active Orders 03/22/18 Consult [General Surgery Consult] [CONS] Routine 03/22/18 21:00 Isosorbide Mononitrate ER [Imdur] 30 mg PO BID Metoprolol Succinate [Toprol Xl] 25 mg PO BID Subjective - Subjective Patient Reports: Other (SOB is less, cough is slightly better, still gets chest "heaviness" even at rest which he hasn't told his RN about and it resolves in an hour or 2. Pt newly reports several mos, of "burning esophagus" pain with swallowing and "all food gets stuck" for several minutes.) Objective Vital Signs: Vital Signs - 24 hr 03/21/18 03/22/18 03/22/18 21:00 00:05 10:34 Temperature 36.7 C 36.5 C 36.5 C Heart Rate Heart Rate [ 61 64 71 Brachial] Respiratory 18 18 18 Rate Blood Pressure 122/75 128/83 H 127/78 [Right Brachial artery] O2 Saturation 98 96 98 03/22/18 03/22/18 10:52 14:10 Temperature Heart Rate 72 95 Heart Rate [ Brachial] Respiratory 16 Rate Blood Pressure [Right Brachial artery] O2 Saturation Oxygen O2 Source Room air I&O (Last 24 Hrs): Intake and Output Totals x24h 03/20/18 03/21/18 03/22/18 23:59 23:59 23:59 Intake Total 340 1440 Output Total 400 925 Balance -60 515 General: Alert, Oriented x3 HEENT: Mucous membr. moist/pink, Other (Temporal wasting.) Neck: Supple, No JVD Cardiovascular: Regular rate, No murmurs Respiratory: Breath sounds nml, Other (Increased AP diameter.) Extremities: No edema - Results Results: Laboratory Results WBC 7.8 x10^3/uL (4.8-10.8) 03/20/18 16:25 RBC 4.89 10^6/uL (4.70-6.10) 03/20/18 16:25 Hgb 15.9 g/dL (14.0-18.0) 03/20/18 16:25 Hct 47.6 % (42.0-52.0) 03/20/18 16:25 MCV 97.5 fL (80.0-94.0) H 03/20/18 16:25 MCH 32.5 pg (27.0-31.0) H 03/20/18 16:25 MCHC 33.3 g/dL (32.0-36.0) 03/20/18 16:25 RDW 13.7 % (12.0-15.0) 03/20/18 16:25 Plt Count 168 10^3/uL (130-450) 03/20/18 16:25 MPV 8.2 fL (7.4-11.4) 03/20/18 16:25 Neut # 4.9 10^3/uL (1.5-6.6) 03/20/18 16:25 Lymph # 2.2 10^3/uL (1.5-3.5) 03/20/18 16:25 [place] # 0.5 10^3/uL (0.0-1.0) 03/20/18 16:25 Eos # 0.0 10^3/uL (0.0-0.7) 03/20/18 16:25 Baso # 0.1 10^3/uL (0.0-0.1) 03/20/18 16:25 Absolute Nucleated RBC 0.00 x10^3/uL 03/20/18 16:25 Nucleated RBC % 0.0 /100WBC 03/20/18 16:25 Sodium 134 mmol/L (135-145) L 03/20/18 16:25 Potassium 4.1 mmol/L (3.5-5.0) 03/20/18 16:25 Chloride 103 mmol/L (101-111) 03/20/18 16:25 Carbon Dioxide 20 mmol/L (21-32) L 03/20/18 16:25 Anion Gap 11.0 (6-13) 03/20/18 16:25 BUN 8 mg/dL (6-20) 03/20/18 16:25 Creatinine 0.7 mg/dL (0.6-1.2) 03/20/18 16:25 Estimated GFR (MDRD) 115 (>89) 03/20/18 16:25 Glucose 116 mg/dL (70-100) H 03/20/18 16:25 Calcium 9.1 mg/dL (8.5-10.3) 03/20/18 16:25 Total Bilirubin 1.1 mg/dL (0.2-1.0) H 03/20/18 16:25 AST 19 IU/L (10-42) 03/20/18 16:25 ALT 16 IU/L (10-60) 03/20/18 16:25 Alkaline Phosphatase 51 IU/L (42-121) 03/20/18 16:25 Troponin I < 0.04 ng/mL (<0.49) 03/21/18 05:18 Total Protein 8.0 g/dL (6.7-8.2) 03/20/18 16:25 Albumin 4.6 g/dL (3.2-5.5) 03/20/18 16:25 Globulin 3.4 g/dL (2.1-4.2) 03/20/18 16:25 Albumin/Globulin Ratio 1.4 (1.0-2.2) 03/20/18 16:25 Triglycerides 92 mg/dL (-149) 03/21/18 05:18 Cholesterol 140 mg/dL (-199) 03/21/18 05:18 LDL Cholesterol, Calc 65 mg/dL (-129) 03/21/18 05:18 VLDL Cholesterol 18 mg/dL 03/21/18 05:18 HDL Cholesterol 57 mg/dL (60-) L 03/21/18 05:18 LDL/HDL Ratio 1.1 (<3.6) 03/21/18 05:18 Cholesterol/HDL Ratio 2.5 (<5.0) 03/21/18 05:18 Lipase 33 U/L (22-51) 03/20/18 16:25 ABX Reporting Has patient been on IV antibiotics over the past 48 hours?: Yes
[2018-03-22] MEDS: NICOTINE 7 MG PATCH TOP SCH (19:04)
[2018-03-23] MEDS: AMPICILLIN/SULBACTAM 1.5 GM in SODIUM CHLORIDE 0.9% MINIBAG 100 ML IV SCH ×4 (02:51→21:34)
[2018-03-23] MEDS: SODIUM CHLORIDE FLUSH 0.9% 10 ML SYRINGE IVP SCH ×3 (02:54→21:34)
[2018-03-23] MEDS: MORPHINE 2 MG/ML SYRINGE IVP PRN ×2 (03:04→12:11)
[2018-03-23] MEDS ORDERED: LIDO GARGLE 30 ML BOTTLE ONE (07:57)
[2018-03-23] MEDS ORDERED: LACTATED RINGERS 1,000 ML IV ONE (08:40)
[2018-03-23] MEDS ORDERED: LIDO GARGLE 30 ML BOTTLE TOP ONE (08:40)
[2018-03-23] MEDS ORDERED: PROPOFOL 200 MG/20 ML VIAL IVP ONE (08:58)
[2018-03-23] MEDS: ASPIRIN 325 MG TABLET PO SCH (09:30)
[2018-03-23] MEDS: FAMOTIDINE 20 MG TABLET PO SCH (09:30)
[2018-03-23] MEDS: SACCHAROMYCES BOULARDII 250 MG CAPSULE PO SCH ×2 (09:30→16:22)
[2018-03-23] MEDS: ENOXAPARIN 40 MG/0.4 ML SYRINGE SUBQ SCH (09:31)
[2018-03-23] MEDS: POLYETHYLENE GLYCOL 3350 17 GM PACKET PO SCH (09:31)
[2018-03-23] MEDS: METOPROLOL SUCCINATE 25 MG TABLET PO SCH ×2 (10:52→21:34)
[2018-03-23] MEDS: ISOSORBIDE MONONITRATE ER 30 MG TABLET PO SCH ×2 (10:52→21:34)
[2018-03-23] MEDS ORDERED: PANTOPRAZOLE 40 MG TABLET PO SCH (12:00)
[2018-03-23] MEDS: SUCRALFATE 1 GM/10 ML UDC PO SCH ×3 (12:11→21:38)
[2018-03-23] MEDS: LANSOPRAZOLE 15 MG CAPSULE PO SCH (12:11)
[2018-03-23] MEDS: SODIUM CHLORIDE FLUSH 0.9% 10 ML SYRINGE IVP PRN (12:12)
--- NOTE | 2018-03-23 17:34 | PROVIDER PROGRESS NOTE ---
Assessment/Plan - Problem List (1) Unstable angina Assessment/Plan: Anginal symptoms have resolved by restarting meds. Pt promises that he will get a new PCP for F/U and refills. he may need an outpt stress test, if angina recurs. (2) Non-compliance Assessment/Plan: Plan as above. (3) CAP (community acquired pneumonia) Qualifiers: Laterality: left Lung location: upper lobe of lung Qualified Code(s): J18.1 - Lobar pneumonia, unspecified organism Assessment/Plan: No further cough or SOB. Will change to po antibiotic, in preparation fr [facility] tomorrow. (4) COPD (chronic obstructive pulmonary disease) Qualifiers: COPD type: emphysema Assessment/Plan: Smoking cessation was discussed and Pt is motivated to stop, using a nicotine patch. (5) Odynophagia Assessment/Plan: GI symptoms are explained by findings of gastritis and hiatal hernia. Will start Prilosec and Sucralfate and surgeon wants Pt to have F/U with him in 3 weeks. Diet may restart. (6) Weight loss Assessment/Plan: Perhaps treatment of the gastritis and hiatal hernia will help with appetite and reverse weight loss. Will start those meds. - Current Meds Current Meds: Current Medications Generic Name Dose Route Start Last Admin Trade Name Freq PRN Reason Stop Dose Admin Albuterol/Ipratropium 3 ml 03/20/18 20:49 03/22/18 10:52 Duoneb INH 3 ml Q4HR PRN Administration Wheezing Aspirin 325 mg 03/21/18 09:00 03/23/18 09:30 Jarrod PO 325 mg DAILY CHERIE Administration Enoxaparin Sodium 40 mg 03/21/18 09:00 03/23/18 09:31 Lovenox SUBQ 40 mg DAILY CHERIE Administration Famotidine 20 mg 03/21/18 09:00 03/23/18 09:30 Pepcid PO 20 mg DAILY CHERIE Administration Ampicillin Sodium/Sulbactam 100 mls @ 200 mls/hr 03/20/18 21:00 03/23/18 16: 59 Sodium 1.5 gm/ Sodium Chloride IV Infused Q6H CHERIE Infusion Isosorbide Mononitrate 30 mg 03/22/18 21:00 03/23/18 10:52 Imdur PO Not Given BID CHERIE Lansoprazole 30 mg 03/23/18 12:00 03/23/18 12:11 Prevacid PO 30 mg QDAC CHERIE Administration Metoprolol Succinate 25 mg 03/22/18 21:00 03/23/18 10:52 Toprol Xl PO Not Given BID CHERIE Morphine Sulfate 2 mg 03/20/18 18:22 03/23/18 12:11 Morphine IVP 2 mg Q2H PRN Administration Pain 8 to 10 Nicotine 1 patch 03/20/18 19:00 03/22/18 19:04 Nicoderm TOP Not Given Q24H CHERIE Polyethylene Glycol 17 gm 03/21/18 09:00 03/23/18 09:31 Miralax PO Not Given DAILY CHERIE Saccharomyces Boulardii 250 mg 03/20/18 21:00 03/23/18 16:22 Florastor PO 250 mg BIDWM CHERIE Administration Sodium Chloride 10 ml 03/20/18 18:22 03/23/18 12:12 Normal Saline Flush 0.9% IVP 10 ml PRN PRN Administration NEEDED PER PROVIDER ORDERS Sodium Chloride 10 ml 03/21/18 01:00 03/23/18 09:32 Normal Saline Flush 0.9% IVP 10 ml 0100,0900,1700 CHERIE Administration Sucralfate 1 gm 03/23/18 12:00 03/23/18 16:21 Carafate PO 1 gm 0700,1100,1600,2200 CHERIE Administration - Lab Result Fish Bone Diagrams: 03/20/18 16:25 03/20/18 16:25 - Additional Planning My Orders: My Active Orders 03/22/18 21:00 Isosorbide Mononitrate ER [Imdur] 30 mg PO BID Metoprolol Succinate [Toprol Xl] 25 mg PO BID 03/23/18 12:00 Lansoprazole [Prevacid] 30 mg PO QDAC Sucralfate [Carafate] 1 gm PO 0700,1100,1600,2200 Subjective - Subjective Patient Reports: Feeling Better Nursing Reports: Other (Pt had 1 episode of CP after returned from EGD, got narcotics with relief.) Objective Vital Signs: Vital Signs - 24 hr 03/22/18 03/23/18 03/23/18 23:45 00:14 08:20 Temperature 36.5 C 36.5 C Heart Rate 63 Heart Rate [ 58 L 60 Brachial] Respiratory 16 16 22 Rate Blood Pressure 132/76 H 128/84 H [Right Brachial artery] O2 Saturation 96 96 03/23/18 03/23/18 03/23/18 09:18 09:45 10:00 Temperature 36.6 C 36.5 C Heart Rate 55 L Heart Rate [ 69 55 L Brachial] Respiratory 20 18 18 Rate Blood Pressure 96/68 128/79 [Right Brachial artery] O2 Saturation 96 98 03/23/18 03/23/18 03/23/18 10:42 11:48 15:48 Temperature 36.7 C 36.6 C 36.7 C Heart Rate Heart Rate [ 53 L 64 60 Brachial] Respiratory 20 20 16 Rate Blood Pressure 138/78 H 143/87 H 121/86 H [Right Brachial artery] O2 Saturation 96 97 98 Oxygen O2 Source Room air I&O (Last 24 Hrs): Intake and Output Totals x24h 03/21/18 03/22/18 03/23/18 23:59 23:59 23:59 Intake Total 340 2030 780 Output Total 400 1900 1175 Balance -60 130 -395 General: Alert, Oriented x3 HEENT: Mucous membr. moist/pink Neck: Supple, No JVD Neuro: Non Focal Cardiovascular: No murmurs Respiratory: Breath sounds nml Abdomen: Soft, No tenderness Extremities: No edema - Results Results: Laboratory Results WBC 7.8 x10^3/uL (4.8-10.8) 03/20/18 16:25 RBC 4.89 10^6/uL (4.70-6.10) 03/20/18 16:25 Hgb 15.9 g/dL (14.0-18.0) 03/20/18 16:25 Hct 47.6 % (42.0-52.0) 03/20/18 16:25 MCV 97.5 fL (80.0-94.0) H 03/20/18 16:25 MCH 32.5 pg (27.0-31.0) H 03/20/18 16:25 MCHC 33.3 g/dL (32.0-36.0) 03/20/18 16:25 RDW 13.7 % (12.0-15.0) 03/20/18 16:25 Plt Count 168 10^3/uL (130-450) 05/09/18 16:25 MPV 8.2 fL (7.4-11.4) 03/20/18 16:25 Neut # 4.9 10^3/uL (1.5-6.6) 03/20/18 16:25 Lymph # 2.2 10^3/uL (1.5-3.5) 03/20/18 16:25 [place] # 0.5 10^3/uL (0.0-1.0) 03/20/18 16:25 Eos # 0.0 10^3/uL (0.0-0.7) 03/20/18 16:25 Baso # 0.1 10^3/uL (0.0-0.1) 03/20/18 16:25 Absolute Nucleated RBC 0.00 x10^3/uL 03/20/18 16:25 Nucleated RBC % 0.0 /100WBC 03/20/18 16:25 Sodium 134 mmol/L (135-145) L 03/20/18 16:25 Potassium 4.1 mmol/L (3.5-5.0) 03/20/18 16:25 Chloride 103 mmol/L (101-111) 03/20/18 16:25 Carbon Dioxide 20 mmol/L (21-32) L 03/20/18 16:25 Anion Gap 11.0 (6-13) 03/20/18 16:25 BUN 8 mg/dL (6-20) 03/20/18 16:25 Creatinine 0.7 mg/dL (0.6-1.2) 03/20/18 16:25 Estimated GFR (MDRD) 115 (>89) 03/20/18 16:25 Glucose 116 mg/dL (70-100) H 03/20/18 16:25 Calcium 9.1 mg/dL (8.5-10.3) 03/20/18 16:25 Total Bilirubin 1.1 mg/dL (0.2-1.0) H 03/20/18 16:25 AST 19 IU/L (10-42) 03/20/18 16:25 ALT 16 IU/L (10-60) 03/20/18 16:25 Alkaline Phosphatase 51 IU/L (42-121) 03/20/18 16:25 Troponin I < 0.04 ng/mL (<0.49) 03/21/18 05:18 Total Protein 8.0 g/dL (6.7-8.2) 03/20/18 16:25 Albumin 4.6 g/dL (3.2-5.5) 03/20/18 16:25 Globulin 3.4 g/dL (2.1-4.2) 03/20/18 16:25 Albumin/Globulin Ratio 1.4 (1.0-2.2) 03/20/18 16:25 Triglycerides 92 mg/dL (-149) 03/21/18 05:18 Cholesterol 140 mg/dL (-199) 03/21/18 05:18 LDL Cholesterol, Calc 65 mg/dL (-129) 03/21/18 05:18 VLDL Cholesterol 18 mg/dL 03/21/18 05:18 HDL Cholesterol 57 mg/dL (60-) L 03/21/18 05:18 LDL/HDL Ratio 1.1 (<3.6) 03/21/18 05:18 Cholesterol/HDL Ratio 2.5 (<5.0) 03/21/18 05:18 Lipase 33 U/L (22-51) 03/20/18 16:25 ABX Reporting Has patient been on IV antibiotics over the past 48 hours?: Yes
[2018-03-23] MEDS: NICOTINE 7 MG PATCH TOP SCH (20:26)
[2018-03-24] MEDS: AMPICILLIN/SULBACTAM 1.5 GM in SODIUM CHLORIDE 0.9% MINIBAG 100 ML IV SCH ×2 (03:04→09:21)
[2018-03-24] MEDS: SODIUM CHLORIDE FLUSH 0.9% 10 ML SYRINGE IVP SCH ×2 (03:11→09:22)
[2018-03-24] MEDS: SUCRALFATE 1 GM/10 ML UDC PO SCH (06:12)
[2018-03-24] MEDS: LANSOPRAZOLE 15 MG CAPSULE PO SCH (06:12)
[2018-03-24 07:41] VITALS: BP 121/62
[2018-03-24] MEDS: SACCHAROMYCES BOULARDII 250 MG CAPSULE PO SCH (09:14)
[2018-03-24] MEDS: METOPROLOL SUCCINATE 25 MG TABLET PO SCH (09:14)
[2018-03-24] MEDS: FAMOTIDINE 20 MG TABLET PO SCH (09:14)
[2018-03-24] MEDS: ASPIRIN 325 MG TABLET PO SCH (09:14)
[2018-03-24] MEDS: ISOSORBIDE MONONITRATE ER 30 MG TABLET PO SCH (09:14)
[2018-03-24] MEDS: ENOXAPARIN 40 MG/0.4 ML SYRINGE SUBQ SCH (09:15)
[2018-03-24] MEDS: POLYETHYLENE GLYCOL 3350 17 GM PACKET PO SCH (09:17)
--- NOTE | 2018-03-24 09:19 | Discharge Plan ---
Discharge Plan Disposition: Home, Self Care Condition: Fair Prescriptions: Amox/Clav 875/125 [Augmentin 875/125] 1 each PO BID #6 tablet Aspirin [Aspirin EC] 81 mg PO DAILY #30 tablet. Azithromycin [Zithromax] 250 mg PO BID #6 tablet Famotidine [Pepcid] 20 mg PO DAILY #30 tablet Isosorbide Mononitrate ER [Imdur] 30 mg PO DAILY #30 tablet Metoprolol Succinate [Toprol Xl] 25 mg PO DAILY #30 tablet Nicotine 7 mg Patch [Nicoderm] 1 each TOP Q24H #14 patch Nitroglycerin 0.4 mg SL 1-2XD PRN #100 tab.subl PRN Reason: Angina Sucralfate [Carafate] 1 gm PO BID #600 ml Zolpidem [Ambien] 5 mg PO QPM PRN #20 tablet PRN Reason: Insomnia Diet: Cardiac Activity Restrictions: Activity as Tolerated Shower Restrictions: No Driving Restrictions: No Instruction Topics: Gastritis, Gastritis Tx, Hiatal Hernia, Angina Unstable, Pneumonia Prevent, Pneumonia Tx Additional Instructions or Follow Up instructions: Resume all your cardiac medications, all of them have been re-prescribed. Get refills from a new PCP. Please establish with a provider in [place]. Take the 2 types of antibiotic pills until they are done, 3 days more. Take the stomach medications for a month, but refills may be advised. See Dr Kenny Velazquez in 3 weeks in follow-up after the upper endoscopy, which he performed. Call to make an appointment with him in [place], . No Smoking: If you smoke, Please STOP! Call for help. Follow-up with: Jr Velazquez MD [Provider Admit Priv/Credential] -
--- NOTE | 2018-03-24 11:57 | PROVIDER PROGRESS NOTE ---
Subjective - General Admit Date: 03/21/18 Objective - Patient Data Vital Signs: Vital Signs x48h Temp Pulse Pulse Resp BP Pulse Ox 03/24/18 08:25 60 18 03/24/18 07:41 36.6 C 57 L 18 121/62 97 Intake & Output: Intake and Output Totals x24h 03/22/18 03/23/18 03/24/18 23:59 23:59 23:59 Intake Total 2030 1270 900 Output Total 1900 1175 Balance 130 95 900 - Lab Results Lab Results: 03/20/18 16:25 03/20/18 16:25 - Current Medications Current Medications: Current Medications Generic Name Dose Route Start Last Admin Trade Name Freq PRN Reason Stop Dose Admin Aspirin 325 mg 03/21/18 09:00 03/24/18 09:14 Jarrod PO 325 mg DAILY CHERIE Administration Enoxaparin Sodium 40 mg 03/21/18 09:00 03/24/18 09:15 Lovenox SUBQ 40 mg DAILY CHERIE Administration Famotidine 20 mg 03/21/18 09:00 03/24/18 09:14 Pepcid PO 20 mg DAILY CHERIE Administration Ampicillin Sodium/Sulbactam 100 mls @ 200 mls/hr 03/20/18 21:00 03/24/18 10: 10 Sodium 1.5 gm/ Sodium Chloride IV Infused Q6H [facility] Infusion Isosorbide Mononitrate 30 mg 03/22/18 21:00 03/24/18 09:14 Imdur PO 30 mg BID CHERIE Administration Lansoprazole 30 mg 03/23/18 12:00 03/24/18 06:12 Prevacid PO 30 mg QDAC CHERIE Administration Metoprolol Succinate 25 mg 03/22/18 21:00 03/24/18 09:14 Toprol Xl PO 25 mg BID CHERIE Administration Morphine Sulfate 2 mg 03/20/18 18:22 03/23/18 12:11 Morphine IVP 2 mg Q2H PRN Administration Pain 8 to 10 Nicotine 1 patch 03/20/18 19:00 03/23/18 20:26 Nicoderm TOP Not Given Q24H [facility] Polyethylene Glycol 17 gm 03/21/18 09:00 03/24/18 09:17 Miralax PO Not Given DAILY [facility] Saccharomyces Boulardii 250 mg 03/20/18 21:00 03/24/18 09:14 Florastor PO 250 mg BIDWM CHERIE Administration Sodium Chloride 10 ml 03/20/18 18:22 03/23/18 12:12 Normal Saline Flush 0.9% IVP 10 ml PRN PRN Administration NEEDED PER PROVIDER ORDERS Sodium Chloride 10 ml 03/21/18 01:00 03/24/18 09:22 Normal Saline Flush 0.9% IVP 10 ml 0100,0900,1700 CHERIE Administration Sucralfate 1 gm 03/23/18 12:00 03/24/18 06:12 Carafate PO 1 gm 0700,1100,1600,2200 CHERIE Administration Impression/Plan - Problem List Problem List: Dysphagia most likely secondary to GERD and gastritis. Currently on PPIs and carafate with improving symptoms. CELSO test NEGATIVE. Will have patient f/u in clinic in 4 weeks.
--- NOTE | 2018-03-26 11:33 | DISCHARGE SUMMARY ---
Physician: Chana Akhtar MD DATE OF ADMISSION: 03/21/2018 DATE OF DISCHARGE: 03/24/2018 HISTORY OF PRESENT ILLNESS: This is a 62-year-old white male with history of coronary artery disease, COPD, noncompliance (he runs out of his medications and has no PCP; therefore, gets symptoms and presents to the emergency room). The patient had run out of his antianginal medications and developed anginal symptoms over 3 days, presented to the emergency room and was admitted for management of symptoms, adjustment of medications. DISCHARGE DIAGNOSES: 1. Unstable angina pectoris. The patient had troponins normal x3 and no changes on 2 sequential EKGs. He was restarted on his aspirin, metoprolol succinate, and sublingual nitroglycerin p.r.n. was used along with initiation of Imdur 30 mg orally daily and his angina resolved. There were also another different complaint of chest pain, which was evaluated and is summarized below. The patient was advised to get a local PCP and have followups with them and refills obtained there. 2. Noncompliance. This was the patient's second admission for running out of medications and developing angina. As stated above, the patient was strongly advised to get a PCP, have followups and refill of medications. The patient had social work assistance and he stated that he would find a doctor in [place] where he was able to have transport to. 3. Community-acquired pneumonia. The patient did have a cough, but no pleuritic chest pain. His chest x-ray did show evidence of infiltrate in the left upper lobe and he was placed on IV antibiotics, then transitioned to oral antibiotics at discharge. His cough subsided. He was advised to stop smoking cigarettes and nicotine patch was used here and prescribed at discharge. 4. Chronic obstructive pulmonary disease. The patient did not have any wheezing, did not require p.r.n. inhalers. Smoking cessation was reviewed with the patient by myself personally. He admitted that he had decreased from smoking 2 packs a day down to 3 cigarettes per day and was planning on stopping completely with the use of the nicotine patch. 5. Gastritis. The patient's other complaint of chest pain was that of food getting stuck in his mid chest, as well as a burning feeling with any drinking or eating. He was seen by general surgery and underwent EGD, which showed signs of gastritis. He was started on PPI and liquid Sucralfate, which helped improve his symptoms significantly. He was discharged with these two new prescriptions. 6. Hiatal hernia. The patient's other finding on EGD was a hiatal hernia, which was managed as #5 above. The patient was advised followup for both of these conditions with his new PCP. 7. Weight loss. The patient was concerned about a 25-pound weight loss over approximately 4 months, but did admit to poor appetite, especially with the symptoms of GERD. The patient does need followup with a PCP for further evaluation of the weight loss. LABORATORY AND IMAGING: Reviewed and summarized above. ALLERGIES: NSAIDS. MEDICATIONS AT THE TIME OF DISCHARGE: 1. Augmentin 875/125 b.i.d. for an additional 3 days of treatment 2. Baby aspirin daily. 3. Zithromax 250 mg b.i.d. for an additional 3 days of treatment. 4. Pepcid 20 mg daily. 5. Imdur 30 mg daily. 6. Toprol-XL 25 mg daily. 7. Nicoderm 7 mg patch for 1 week daily. 8. Sublingual nitroglycerin p.r.n. angina. 9. Carafate 1 gram in 10 mL b.i.d. for a month. 10. Ambien 5 mg q.p.m. p.r.n. insomnia. CONDITION AT DISCHARGE: Stable. PHYSICAL EXAMINATION AT DISCHARGE: VITAL SIGNS: Blood pressure 121/62, pulse of 57, sinus rhythm, afebrile. Room air saturation 97%. HEENT: Showed poor dentition, but otherwise unremarkable. NECK: No JVD or carotid bruits. CHEST: Clear. HEART: Sounds normal. No murmur. ABDOMEN: Soft, nontender, normal bowel sounds. EXTREMITIES: Without edema. NEUROLOGIC: Intact. FOLLOWUP: New PCP in [place] was advised. CODE STATUS: FULL CODE. Time required to complete this entire dictation, review of chart, medications: 60 minutes. TD: 03/25/2018 17:57 MONO
--- NOTE | 2018-04-12 11:55 | CONSULTATION NOTE ---
DATE OF SERVICE: 03/22/2018 Physician: Jr Velazquez MD REFERRING PROVIDER: Chana Akhtar MD REASON FOR REFERRAL: Dysphagia. HISTORY OF PRESENT ILLNESS: Patient is a 62-year-old male who presents to the hospital with chest pain. He had been worked up for this, with myocardial infarction ruled out. However, he has been having problems with dysphagia for the last couple of months, where food appears to be getting stuck in the esophagus. It eventually clears with him drinking fluids. It is rare that he has vomiting. He denies any significant heartburn or reflux. PAST MEDICAL HISTORY 1. Coronary artery disease with history of myocardial infarction. 2. COPD. 3. Tobacco dependency. ALLERGIES: NON-STEROIDALS. MEDICATIONS 1. Aspirin. 2. Imdur 3. Metoprolol. 4. Nicotine. 5. Sublingual nitroglycerin. 6. Ambien. FAMILY HISTORY: Brother with history of lung cancer. SOCIAL HISTORY: Patient smokes; denies any alcohol or drug use. PAST SURGICAL HISTORY: Coronary stenting. SOCIAL HISTORY: Patient is single. REVIEW OF SYSTEMS GASTROINTESTINAL: Dysphagia. CARDIOPULMONARY: Chest pain. PULMONARY: Shortness of breath and cough. CONSTITUTIONAL: He has had 25-pound weight loss over the last year. PHYSICAL EXAMINATION VITAL SIGNS: Temperature is 36.5, heart rate 95, blood pressure 137/90. GENERAL: Patient is sitting up in bed in no distress. HEENT: Eyes nonicteric. NECK: No lymphadenopathy. HEART: Regular. LUNGS: Clear. BACK: Nontender. ABDOMEN: Soft, nontender. EXTREMITIES: No edema or cyanosis. NEUROLOGIC: Patient appears to be neurologically intact without any deficit. PSYCHOLOGICAL: Patient is coherent, cooperative, and appears to answer questions fully. DIAGNOSTIC DATA: White blood cell count of 7.8, hemoglobin 16, platelets of 168, creatinine 0.7. Liver function tests within normal limits except for bilirubin of 1.1. ASSESSMENT 1. Dysphagia. Patient has a history of tobacco use. I am concerned that he may have esophageal cancer as a cause of his dysphagia and weight loss. I have recommended that he undergo upper endoscopy with possible biopsy or dilation of his esophagus. The risks and possible complications of the procedure have been explained to him. He accepts the risks and would like to proceed with the procedure. 2. Chronic obstructive pulmonary disease, currently not on any inhalers but continues to smoke tobacco products. 3. Tobacco dependency. 4. Coronary artery disease with history of myocardial infarction. Myocardial infarction has been ruled out during this hospitalization. PLAN 1. NPO after midnight. 2. IV fluids. 3. Esophagogastroduodenoscopy with possible dilation or biopsy. TD: 04/10/2018 11:47
== END 2018-03-24 11:00 | disposition home or self-care (01) | DRG 302 ==
LOC: ED 13:11 → UNDOADMOB 18:22 → MS2 18:22 → OBSVTOIN 03-21 16:40
PROVIDERS: ADMIT Internal Medicine; ATTEND Internal Medicine
PROC: 0DB78ZX Excision of Stomach, Pylorus, Via Natural or Artificial Opening Endoscopic, Diagnostic (ICD-10-PCS; 2018-03-23)
PROC: 0DB38ZX Excision of Lower Esophagus, Via Natural or Artificial Opening Endoscopic, Diagnostic (ICD-10-PCS; principal; 2018-03-23 08:30)
DX: I25.110 Atherosclerotic heart disease of native coronary artery with unstable angina pectoris (principal); J18.1 Lobar pneumonia, unspecified organism; T46.3X6A Underdosing of coronary vasodilators, initial encounter; T44.7X6A Underdosing of beta-adrenoreceptor antagonists, initial encounter; T39.016A Underdosing of aspirin, initial encounter; K25.9 Gastric ulcer, unspecified as acute or chronic, without hemorrhage or perforation; K20.9 Esophagitis, unspecified; K44.9 Diaphragmatic hernia without obstruction or gangrene; K21.9 Gastro-esophageal reflux disease without esophagitis; J43.9 Emphysema, unspecified; I10 Essential (primary) hypertension; E78.00 Pure hypercholesterolemia, unspecified; F32.9 Major depressive disorder, single episode, unspecified; F17.210 Nicotine dependence, cigarettes, uncomplicated; I25.2 Old myocardial infarction; Z91.138 Patient's unintentional underdosing of medication regimen for other reason; Z95.5 Presence of coronary angioplasty implant and graft; Z79.82 Long term (current) use of aspirin; Z86.73 Personal history of transient ischemic attack (TIA), and cerebral infarction without residual deficits
CPT/HCPCS: 36415; 71045; 71046; 71275; 80053; 80061; 83690; 83721; 84484; 85025; 87040; 87070; 87081; 87205; 88305; 93005; 94640; 94761; 96365; 96366; 96372; 96375; 96376; 99283; 99284